=== PATIENT | male | born 1990 | race Hispanic/Latino ===

== ENCOUNTER 2024-07-19 08:40 | Emergency (ER) | payer SELFPAY ==
[~2024-07-19] VITALS: Ht 182.9 cm; Wt 136.1 kg
[2024-07-19 08:51] VITALS: PULSE 74; RESP 18; TEMP 98.6; O2SAT 99
== END 2024-07-19 09:50 | disposition home or self-care (01) ==
LOC: ER 08:48
DX: S93.492A Sprain of other ligament of left ankle, initial encounter (principal); X50.1XXA Overexertion from prolonged static or awkward postures, initial encounter; Y93.01 Activity, walking, marching and hiking; Y92.89 Other specified places as the place of occurrence of the external cause
CPT/HCPCS: 99283